=== PATIENT | male | born 2000 | race Caucasian/White ===

== ENCOUNTER 2019-08-04 16:22 | Emergency (ER) | payer BC ==
--- NOTE | 2019-08-04 16:50 | RAD ---
EXAM: CHEST ONE VIEW HISTORY: Shortness of breath, dyspnea. COMPARISON: None FINDINGS: The cardiac silhouette and pulmonary vasculature is within normal limits. The lungs are clear. The os seous structures are intact. IMPRESSION: No acute cardiopulmonary process.
== END 2019-08-04 17:05 | disposition home or self-care (01) ==
LOC: ERS 16:22
DX: R06.02 Shortness of breath (principal); T40.7X5A Adverse effect of cannabis (derivatives), initial encounter; F17.290 Nicotine dependence, other tobacco product, uncomplicated
CPT/HCPCS: 71045; 93005

== ENCOUNTER 2019-08-07 01:13 | Emergency (ER) | payer BC | END 2019-08-07 02:13 | disposition home or self-care (01) | LOC: ERS 01:13 | DX: F41.0 Panic disorder [episodic paroxysmal anxiety] (principal); F17.290 Nicotine dependence, other tobacco product, uncomplicated | CPT/HCPCS: 99284 ==